=== PATIENT | male | born 1960 | race Caucasian/White ===

== ENCOUNTER 2023-01-02 09:45 | Outpatient (RCR) | payer BC, SELFPAY | END 2023-03-23 15:38 | disposition home or self-care (01) | PROVIDERS: PCP Family Medicine; Visit Provider Family Medicine | DX: M25.561 Pain in right knee (principal); M25.562 Pain in left knee; R26.81 Unsteadiness on feet; R53.1 Weakness; R29.898 Other symptoms and signs involving the musculoskeletal system; Z51.89 Encounter for other specified aftercare | CPT/HCPCS: 97110; 97140; 97162 ==

== ENCOUNTER 2024-04-18 09:29 | Outpatient (CLI) | payer BC, SELFPAY ==
--- NOTE | 2024-04-18 10:37 | P.ANES_ITS ---
Anesthesia Charges Start Date/Time Anesthesia Start Date: 04/18/24 Anesthesia Start Time: 10:10 Stop Date/Time Anesthesia Stop Date: 04/18/24 Anesthesia Stop Time: 10:34 Coding CPT Codes CPT Codes: STEPHENIE LWR INTST SCR COLSC - [id number] ([id number]) P2 - PATIENT W/MILD SYST DISEASE, QK - THIRD SHIFT LIEUTENANT 2-4 CNCRNT ANES PROC, QX - COUNTY EXTENSION AGENT SVC W/ MD MED DIRECTION
--- NOTE | 2024-04-18 10:37 | W.ANESCHARGE ---
Anesthesia Charges Start Date/Time Anesthesia Start Date: 04/18/24 Anesthesia Start Time: 10:10 Stop Date/Time Anesthesia Stop Date: 04/18/24 Anesthesia Stop Time: 10:34 Coding CPT Codes CPT Codes: STEPHENIE LWR INTST SCR COLSC - [id number] ([id number]) P2 - PATIENT W/MILD SYST DISEASE, QK - MANAGER JAVA 2-4 CNCRNT ANES PROC, QX - DIAMOND SANDER SVC W/ MD MED DIRECTION
--- NOTE | 2024-04-18 10:58 | P.ANES_ITS ---
Anesthesia Charges Start Date/Time Anesthesia Start Date: 04/18/24 Anesthesia Start Time: 10:10 Stop Date/Time Anesthesia Stop Date: 04/18/24 Anesthesia Stop Time: 10:34 Coding CPT Codes CPT Codes: STEPHENIE LWR INTST SCR COLSC - [id number] ([id number]) P2 - PATIENT W/MILD SYST DISEASE, QK - WIRER STREET LIGHT 2-4 CNCRNT ANES PROC, QX - BED AND BREAKFAST OPERATOR SVC W/ MD MED DIRECTION
--- NOTE | 2024-04-18 10:58 | W.ANESCHARGE ---
Anesthesia Charges Start Date/Time Anesthesia Start Date: 04/18/24 Anesthesia Start Time: 10:10 Stop Date/Time Anesthesia Stop Date: 04/18/24 Anesthesia Stop Time: 10:34 Coding CPT Codes CPT Codes: STEPHENIE LWR INTST SCR COLSC - [id number] ([id number]) P2 - PATIENT W/MILD SYST DISEASE, QK - EARLY HEAD START DIRECTOR 2-4 CNCRNT ANES PROC, QX - TENDER COORDINATOR SVC W/ MD MED DIRECTION
== END 2024-04-18 09:30 | disposition home or self-care (01) ==
LOC: OP CLINIC 09:32
PROVIDERS: PCP Family Medicine; Visit Provider Surgery
DX: Z12.11 Encounter for screening for malignant neoplasm of colon (principal); D12.8 Benign neoplasm of rectum; Z86.0100 Personal history of colon polyps, unspecified
CPT/HCPCS: 00812; 45385; 88305; J2704